=== PATIENT | male | born 1955 | race Caucasian/White ===

== ENCOUNTER 2023-04-09 08:25 | Outpatient (CLI) | payer OTHER | END 2023-04-09 08:26 | disposition home or self-care (01) | LOC: CSHWCC 08:25 | PROVIDERS: ATTEND Nurse Practitioner Family | DX: T81.89XD Other complications of procedures, not elsewhere classified, subsequent encounter (principal) ==

== ENCOUNTER 2023-04-16 08:14 | Outpatient (CLI) | payer MEDICARE | END 2023-04-16 08:15 | disposition home or self-care (01) | LOC: CSHWCC 08:14 | PROVIDERS: ATTEND Nurse Practitioner Family | DX: T81.89XD Other complications of procedures, not elsewhere classified, subsequent encounter (principal) | CPT/HCPCS: 97607 ==

== ENCOUNTER 2023-04-23 08:04 | Outpatient (CLI) | payer OTHER | END 2023-04-23 08:05 | disposition home or self-care (01) | LOC: CSHWCC 08:04 | PROVIDERS: ATTEND Nurse Practitioner Family | DX: T81.89XD Other complications of procedures, not elsewhere classified, subsequent encounter (principal) | CPT/HCPCS: 97602 ==

== ENCOUNTER 2023-04-30 08:15 | Outpatient (CLI) | payer OTHER | END 2023-04-30 08:16 | disposition home or self-care (01) | LOC: CSHWCC 08:15 | PROVIDERS: ATTEND Nurse Practitioner Family | DX: T81.89XD Other complications of procedures, not elsewhere classified, subsequent encounter (principal) | CPT/HCPCS: 97602 ==

== ENCOUNTER 2023-05-21 08:03 | Outpatient (CLI) | payer OTHER | END 2023-05-21 08:04 | disposition home or self-care (01) | LOC: CSHWCC 08:03 | PROVIDERS: ATTEND Preventive Medicine Undersea and Hyperbaric Medicine | DX: T81.89XD Other complications of procedures, not elsewhere classified, subsequent encounter (principal) | CPT/HCPCS: 99211; G0463 ==

== ENCOUNTER 2023-06-04 08:06 | Outpatient (CLI) | payer OTHER | END 2023-06-04 08:07 | disposition home or self-care (01) | LOC: CSHWCC 08:06 | PROVIDERS: ATTEND Preventive Medicine Undersea and Hyperbaric Medicine | DX: T81.89XD Other complications of procedures, not elsewhere classified, subsequent encounter (principal) | CPT/HCPCS: 99212; G0463 ==